=== PATIENT | male | born 1960 | race Caucasian/White ===

== ENCOUNTER → 2016-05-01 | Outpatient (CLI) | payer OTHER ==
--- NOTE | 2016-05-02 06:54 | REP ---
Clinical: Left lobe nodule. Comparison: None. Findings: The lung munson are well-aerated and symmetric. No consolidation, nodule or mass lesion is appreciated. No pleural effusion or reaction. No pneumothorax. No obvious adenopathy. The tracheobronchial tree appears patent and normal. Mediastinum is unremarkable. Surrounding musculoskeletal structures are intact. Impression: Normal noncontrast chest CT. No pulmonary nodule or mass lesion appreciated. Signed by Melvin Samaniego MD 05/02/2016 06:46 A
== END ==
LOC: M RAD 08:18
DX: R91.1 Solitary pulmonary nodule (principal)

== ENCOUNTER 2016-09-14 13:15 | Emergency (ER) | payer OTHER ==
[~2016-09-14] VITALS: Ht 185.4 cm; Wt 80.3 kg
[2016-09-14 13:16] VITALS: BP 170/94
[2016-09-14] MEDS ORDERED: LISI10TA2 PO (13:22)
[2016-09-14] MEDS ORDERED: FLUORESCEIN OPHTH 1 MG STRIP OS ONE (13:45)
[2016-09-14] MEDS ORDERED: TETRACAINE 0.5% OPHTH SOLN 4ML OS ONE (13:45)
[2016-09-14] MEDS ORDERED: GENT3OPD OS (13:51)
[2016-09-14] MEDS ORDERED: GENTAMICIN 0.3% OPHTH SOL 5 ML BTL OS ONE (14:00)
== END 2016-09-14 14:09 | disposition home or self-care (01) ==
LOC: M ED 13:59
DX: S05.02XA Injury of conjunctiva and corneal abrasion without foreign body, left eye, initial encounter (principal); X58.XXXA Exposure to other specified factors, initial encounter; Y92.89 Other specified places as the place of occurrence of the external cause; Y93.89 Activity, other specified; Y99.8 Other external cause status; I10 Essential (primary) hypertension; G47.30 Sleep apnea, unspecified; Z79.899 Other long term (current) drug therapy

== ENCOUNTER 2017-06-13 06:52 | Day surgery (SDC) | payer OTHER ==
[2017-06-13] MEDS: NS 1,000 ML IV (07:15)
[2017-06-13] MEDS ORDERED: PROPOFOL 200 MG/20 ML VIAL As Ordered ×2 (08:01→08:36)
[2017-06-13] MEDS ORDERED: LIDOCAINE 2% INJ 100 MG/5 ML SDV (FOR ANES.) As Ordered (08:16)
== END 2017-06-13 09:23 | disposition home or self-care (01) ==
LOC: M OPP 06:52
DX: R19.5 Other fecal abnormalities (principal); R19.4 Change in bowel habit; D12.2 Benign neoplasm of ascending colon; D12.4 Benign neoplasm of descending colon; D12.7 Benign neoplasm of rectosigmoid junction; K64.8 Other hemorrhoids; K21.9 Gastro-esophageal reflux disease without esophagitis; R12 Heartburn; K29.70 Gastritis, unspecified, without bleeding; I10 Essential (primary) hypertension; R10.9 Unspecified abdominal pain; F41.9 Anxiety disorder, unspecified; R06.83 Snoring; G47.30 Sleep apnea, unspecified; Z87.891 Personal history of nicotine dependence; Z79.899 Other long term (current) drug therapy; Z80.3 Family history of malignant neoplasm of breast; Z80.1 Family history of malignant neoplasm of trachea, bronchus and lung; Z80.8 Family history of malignant neoplasm of other organs or systems; Z80.0 Family history of malignant neoplasm of digestive organs
CPT/HCPCS: 45380